=== PATIENT | female | born 1965 | race Caucasian/White ===

== ENCOUNTER 2019-06-21 12:31 | Emergency (ER) | payer MEDICAID, OTHER ==
[~2019-06-21] VITALS: Ht 170.2 cm; Wt 55.2 kg
[~2019-06-21 12:31] MED LIST: ACET500C5 PO; BUSP10TA2 PO; CEPH-443 PO; CLIN300C10 PO; CLON0.5T14 PO; FLUO40CA10 PO; GABA100C14 PO; HYDR-4011 PO; HYDR-843 PO; LOPE2CAP PO; METH750T93 PO; METR500T PO; NAPR-985 PO; ONDA4TAB14 PO; VANC125C4 PO
[2019-06-21 12:37] VITALS: Ht 170.2 cm; Wt 55.2 kg
== END 2019-06-21 15:41 | disposition left against medical advice (07) ==
LOC: FTE 12:31
DX: M70.32 Other bursitis of elbow, left elbow (principal); F17.210 Nicotine dependence, cigarettes, uncomplicated; Y93.9 Activity, unspecified
CPT/HCPCS: 99282